=== PATIENT | male | born 2000 | race Caucasian/White ===

== ENCOUNTER 2018-05-06 17:54 | Emergency (ER) | payer BC, OTHER ==
[2018-05-06 18:48] VITALS: BP 152/82
[2018-05-06] MEDS ORDERED: Sodium Chloride 0.9% 1,000 ML IV ONE ×2 (19:42→20:52)
[2018-05-06] MEDS ORDERED: cefTRIAXone 1 GM Vial IVPUSH ONE (19:42)
[2018-05-06] MEDS ORDERED: methylPREDNISolone Sodium Succinate 125 MG/2 ML SDV IVPUSH ONE (19:42)
--- NOTE | 2018-05-06 19:45 | EDM.PDOC ---
ED HPI GENERAL MEDICAL PROBLEM - General Chief Complaint: Allergic Reaction Stated Complaint: JERAD ABBASI Time Seen by Provider: 05/06/18 19:43 Source of Information: Reports: Patient History Limitations: Reports: No Limitations - History of Present Illness INITIAL COMMENTS - FREE TEXT/NARRATIVE: fell into [facility] last night woke up with itchy rash all over Left Abdomen Pain Score (Numeric/FACES): 7 - Related Data Allergies Allergy/AdvReac Type Severity Reaction Status Date / Time amoxicillin [Amoxicillin] Allergy Rash Verified 09/26/15 23:34 bacitracin Allergy Rash Verified 05/06/18 18:52 [From Neosporin ([id number])] banana [Banana] Allergy Itching Verified 09/26/15 23:34 neomycin Allergy Rash Verified 05/06/18 18:52 [From Neosporin ([id number])] polymyxin B Allergy Rash Verified 05/06/18 18:52 [From Neosporin ([id number])] Sulfa (Sulfonamide Allergy Hives Verified 05/06/18 18:51 Antibiotics) brody Allergy Hives Uncoded 09/26/15 23:34 Home Meds: Home Meds Albuterol Sulfate [Ventolin Hfa] 09/26/15 [History] Social & Family History - Tobacco Use Smoking Status *Q: Never Smoker - Alcohol Use Days Per Week of Alcohol Use: 2 Number of Drinks Per Day: 4 Total Drinks Per Week: 8 - Recreational Drug Use Recreational Drug Use: No ED ROS ALLERGIC REACTION - Review of Systems Review Of Systems: ROS reveals no pertinent complaints other than HPI. ED EXAM GENERAL NO PERIP PULSE - Physical Exam Exam: See Below Exam Limited By: No Limitations General Appearance: Alert, WD/WN, Mild Distress, Other (discomfort) Ears: Hearing Grossly Normal Throat/Mouth: Normal Voice, No Airway Compromise Head: Atraumatic Neck: Non-Tender, Full Range of Motion Respiratory/Chest: No Respiratory Distress Cardiovascular: Regular Rate, Rhythm GI/Abdominal: Soft, Non-Tender Neurological: Alert, Oriented, Normal Cognition, Normal Gait, No Motor/Sensory Deficits Psychiatric: Normal Affect, Normal Mood Skin Exam: Warm, Dry, Normal Color, Rash Lymphatic: No Adenopathy Course - Vital Signs Last Recorded V/S: Last Vital Signs Temp 37.8 C 05/06/18 18:47 Pulse 91 05/06/18 18:47 Resp 16 05/06/18 18:47 BP 152/82 H 05/06/18 18:47 Pulse Ox 99 05/06/18 18:47 - Orders/Labs/Meds Meds: Medications Discontinued Medications Generic Name Dose Route Start Last Admin Trade Name Jerman SAAVEDRA Reason Stop Dose Admin Ceftriaxone Sodium 1 gm 05/06/18 19:42 05/06/18 19:52 Rocephin IVPUSH 05/06/18 19:43 1 gm ONETIME ONE Administration Diphenhydramine HCl 25 mg 05/06/18 20:57 05/06/18 21:00 Benadryl IVPUSH 05/06/18 20:58 25 mg ONETIME ONE Administration Famotidine 20 mg 05/06/18 20:23 05/06/18 20:31 Pepcid IVPUSH 05/06/18 20:24 20 mg ONETIME ONE Administration Sodium Chloride 1,000 mls @ 999 mls/hr 05/06/18 19:42 05/06/18 19:52 Normal Saline IV 05/06/18 20:42 999 mls/hr .BOLUS ONE Administration Sodium Chloride 1,000 mls @ 999 mls/hr 05/06/18 20:52 05/06/18 20:58 Normal Saline IV 05/06/18 21:52 999 mls/hr .BOLUS ONE Administration Methylprednisolone Sodium Succinate 125 mg 05/06/18 19:42 05/06/18 19:52 Solu-Medrol IVPUSH 05/06/18 19:43 125 mg ONETIME ONE Administration - Re-Assessments/Exams Free Text/Narrative Re-Assessment/Exam: 05/06/18 20:51 re-exam; feeling better but not 100% 05/06/18 22:49 re-exam; sleeping woke up feeling much better but not 100% Departure - Departure Time of Disposition: 22:50 Disposition: Home, Self-Care 01 Condition: Good Clinical Impression: Contact dermatitis Qualifiers: Contact dermatitis type: allergic Contact dermatitis trigger: non-food plants Qualified Code(s): L23.7 - Allergic contact dermatitis due to plants, except food - Discharge Information Instructions: Rash, [id number] Forms: ED Department Discharge Additional Instructions: 1) don't scratch too much 2) take benadryl 50mg 3 times daily for itchy rash 3) recheck if there is any change or concern rx given; leni avllek
[2018-05-06] MEDS ORDERED: Famotidine 20 MG/2 ML SDV IVPUSH ONE (20:23)
[2018-05-06] MEDS ORDERED: diphenhydrAMINE 50 MG/ML SDV IVPUSH ONE (20:57)
== END 2018-05-06 23:01 | disposition home or self-care (01) ==
LOC: DL.ED 17:54
DX: L23.7 Allergic contact dermatitis due to plants, except food (principal); Z88.1 Allergy status to other antibiotic agents; Z88.2 Allergy status to sulfonamides; Z88.8 Allergy status to other drugs, medicaments and biological substances
CPT/HCPCS: 96361; 96374; 96375; 99283; J0696; J1200; J2930; J7030; J3490